=== PATIENT | female | born 1945 | race African-American/Black ===

== ENCOUNTER 2017-08-05 08:20 | Emergency (ER) | payer MEDICARE ==
[~2017-08-05] VITALS: Ht 170.2 cm; Wt 80.0 kg
[2017-08-05] MEDS ORDERED: AMLO10TA80 PO (08:40)
[2017-08-05] MEDS ORDERED: HYDR200T35 PO (08:44)
[2017-08-05] MEDS ORDERED: ISOS30TA6 PO (08:44)
[2017-08-05] MEDS ORDERED: CLOP75TA16 PO (08:44)
[2017-08-05] MEDS ORDERED: METO25TA6 PO (08:44)
[2017-08-05] MEDS ORDERED: SPIR25TA4 PO (08:44)
[2017-08-05] MEDS ORDERED: ALBUTEROL (0.083%) 2.5MG/3ML NEB HHN STA (10:13)
[2017-08-05 10:45] LABS: BASOPHILS % 0.6 % (0.0-2.0); EOSINOPHILS % 1.6 % (0.0-5.0); HEMOGLOBIN. 10.7 g/dL (12.0-16.0); LYMPHOCYTES % 46.1 % (20.0-50.0); MEAN CORPUSCULAR HEMOGLOBIN 26.3 pg (28.0-32.0); MEAN CORPUSCULAR VOLUME 81.5 fL (81.0-99.0); MEAN PLATELET VOLUME 9.7 fl (7.4-10.4); MONOCYTES % 8.2 % (2.0-8.0); NEUTROPHILS % 43.5 % (40.0-76.0); PLATELET 151 x1000/uL (130-400); RED BLOOD CELL COUNT 4.05 mill/uL (4.2-5.4); RED CELL DISTRIBUTION WIDTH 14.9 % (11.6-14.6)
[2017-08-05 10:52] LABS: INR 1.1; PROTHROMBIN TIME 11.5 sec (9.4-11.6)
[2017-08-05 11:03] LABS: CARBON DIOXIDE 22 mEq/L (21-32); CHLORIDE 110 mEq/L (98-107); TROPONIN I < 0.02 ng/mL (0.00-0.04)
[2017-08-05 14:06] VITALS: BP 155/60
== END 2017-08-05 14:12 | disposition home or self-care (01) ==
LOC: ER 08:46
DX: J20.9 Acute bronchitis, unspecified (principal); I10 Essential (primary) hypertension; M19.90 Unspecified osteoarthritis, unspecified site; Z95.5 Presence of coronary angioplasty implant and graft; Z79.01 Long term (current) use of anticoagulants
CPT/HCPCS: 36415; 71010; 80053; 83880; 84484; 85025; 85610; 93005; 94640; 99285; J7611